=== PATIENT | female | born 1955 | race Caucasian/White ===

== ENCOUNTER 2019-06-03 07:44 | Inpatient (IN) | payer OTHER ==
[~2019-06-03 07:44] MED LIST: ACETAMINOPHEN 500 MG TABLET PO ONE; CEFAZOLIN 2 Gram 2 GM/50 ML BAG IVPB ONE; CELECOXIB 100 MG CAPSULE PO ONE; CLINDAMYCIN PHOS/D5W 900MG 900 MG/50 ML BAG IVPB ONE; FAMOTIDINE 20MG TABLET PO ONE; METOCLOPRAMIDE 10 MG TABLET PO ONE; SCOPOLAMINE 1 PATCH TDSY TD ONE; VANCOMYCIN 1GM/200ML PREMIX 1 GM/200 ML PIGGYBACK IVPB ONE
[2019-06-03] MEDS ORDERED: PROMETHAZINE HCL 12.5 MG in 0.9 % SODIUM CHLORIDE 100ML 50 ML IVPB PRN (08:11)
[2019-06-03] MEDS ORDERED: ACETAMINOPHEN 325 MG TAB PO PRN (08:11)
[2019-06-03] MEDS ORDERED: KETOROLAC 30 MG/ML VIAL IVP PRN (08:11)
[2019-06-03] MEDS ORDERED: NALOXONE 0.4 MG/1 ML VIAL IVP PRN (08:11)
[2019-06-03] MEDS ORDERED: MAGNESIUM HYDROXIDE 30 ML UDC PO PRN (08:11)
[2019-06-03] MEDS ORDERED: ACETAMINOPHEN W/ CODEINE 300MG/60MG TABLET PO PRN (08:11)
[2019-06-03] MEDS ORDERED: METOCLOPRAMIDE HCL 10 MG/2 ML VIAL IVP PRN (08:11)
[2019-06-03] MEDS ORDERED: BISACODYL 10 MG SUPP RC PRN (08:11)
[2019-06-03] MEDS ORDERED: ZOLPIDEM TARTRATE 5 MG TABLET PO PRN (08:11)
[2019-06-03] MEDS ORDERED: TRAMADOL HCL 50 MG TABLET PO PRN (08:11)
[2019-06-03] MEDS ORDERED: HYDROCODONE/APAP 5/325MG TABLET PO PRN (08:11)
[2019-06-03] MEDS ORDERED: DIPHENHYDRAMINE HCL 25 MG CAPSULE PO PRN (08:11)
[2019-06-03] MEDS ORDERED: AL HYDROX/MAG HYDROX 30ML UD PO PRN (08:11)
[2019-06-03] MEDS ORDERED: ONDANSETRON HCL IV 4 MG/2 ML VIAL IVP PRN (08:11)
[2019-06-03] MEDS ORDERED: HYDROMORPHONE HCL 2 MG/ML VIAL IM PRN ×2 (08:11)
[2019-06-03] MEDS ORDERED: ACETAMINOPHEN W/ CODEINE 300MG/30MG TABLET PO PRN ×2 (08:11)
[2019-06-03] MEDS ORDERED: CELECOXIB 100 MG CAPSULE PO ONE (08:31)
[2019-06-03] MEDS ORDERED: ACETAMINOPHEN 500 MG TABLET PO ONE (08:31)
[2019-06-03 08:54] LABS: ABO GROUP A; ANTIBODY SCREEN NEGATIVE (NEGATIVE); RH TYPE POSITIVE
[2019-06-03] MEDS ORDERED: RINGERS SOLUTION,LACTATED 1,000 ML IV ONE ×3 (08:57→12:23)
[2019-06-03] MEDS ORDERED: BUPIVACAINE 0.5% W/EPI MPF 30 ML VIAL IU ONE (11:20)
[2019-06-03] MEDS ORDERED: VANCOMYCIN HCL 1 GM VIAL IU ONE ×2 (11:21)
[2019-06-03] MEDS ORDERED: VANCOMYCIN HCL 1 GM VIAL IR ONE (11:21)
[2019-06-03] MEDS ORDERED: BUPIVACAINE LIPOSOME 266MG/20ML VIAL SQ ONE (11:21)
[2019-06-03] MEDS ORDERED: TRANEXAMIC ACID 1,000 MG/10 ML ML IU ONE (11:23)
[2019-06-03] MEDS ORDERED: TRANEXAMIC ACID 1,000 MG/10 ML ML IVPB ONE (11:24)
[2019-06-03] MEDS ORDERED: DEXTROSE 5 % AND 0.9 % NACL 1,000 ML IV PRN (12:30)
[2019-06-03] MEDS: FENTANYL CITRATE/PF (PACU) 50 MCG/ML VIAL IVP PRN ×2 (13:05→13:15)
[2019-06-03] MEDS ORDERED: HYDROMORPHONE HCL 2 MG/ML VIAL IVP PRN (13:16)
--- NOTE | 2019-06-03 13:28 | RADIOLOGY REPORT ---
EXAMINATION: Right Shoulder, single view EXAM DATE: 06/03/2019 12:59 PM TECHNIQUE: AP INDICATION: RIGHT SHOULDER ARTHROPLASTY COMPARISON: None ENCOUNTER: Initial FINDINGS: Single frontal image of the shoulder shows a humeral head prosthesis and cementing of the glenoid fos sa. Normal alignment. No periprosthetic fracture. Osteopenia and mild degenerative change of the acro mioclavicular joint are noted. Surgical skin vidhya are present. IMPRESSION: Right shoulder arthroplasty. Dictated by: Tali Johnson MD on 06/03/2019 1:25 PM. .
[2019-06-03] MEDS ORDERED: LABETALOL HCL 5MG/ML, 20ML VIAL IV ONE (13:54)
--- NOTE | 2019-06-03 15:13 | Operative Note ---
DATE OF SURGERY: 06/03/2019 PREOPERATIVE DIAGNOSIS: END STAGE RIGHT GLENOHUMERAL ARTHROSIS. POSTOPERATIVE DIAGNOSIS: END STAGE RIGHT GLENOHUMERAL ARTHROSIS. OPERATION: 1. RIGHT TOTAL SHOULDER ARTHROPLASTY. 2. BICEPS TENODESIS. SURGEON: Bob Rojas M.D. ANESTHESIA: General endotracheal. ANESTHESIA PROVIDER: ELIZABETH Ramos CRNA COMPLICATIONS: None. ESTIMATED BLOOD LOSS: Minimal OPERATIVE FINDINGS: [id number] glenohumeral arthrosis. COMPONENTS PLACED: 2 gram Vancomycin cement, Equinoxe total shoulder arthroplasty system, a medium four pack glenoid component, a size 9 humeral stem and a replicator plate and a 44 x 17 mm humeral head component. INDICATION: This is a 64-year-old female who has had persistent pain and dysfunction in her shoulder for several years. Failed nonoperative treatment and operative shoulder replacement, [id number] arthrosis and she wished to proceed. PROCEDURE: The patient was brought to the Operating Room and placed in the beach chair position, prepped for surgery. General endotracheal anesthesia was induced. Her right upper extremity and right shoulder were prepped and draped in sterile fashion. The right shoulder was prepped again with ChloraPrep. Intraoperative timeout was performed. Next, I performed a superolateral deltoid minimal incision. The skin and subcutaneous tissues were dissected down to the deltoid, the deltoid was released off the distal clavicle. The anterolateral acromion is completely normal and no more than 4 cm distal. Next, we then brought in self retainers and then identified the rotator cuff. The rotator cuff was intact. We identified the rotator interval and biceps tendon, opened up the bicipital groove and released the rotator interval medially to the top of the glenoid. We cut and released the biceps tendon, tagged it and layered it with subscap repair. Next, we used a curved osteotome and did a hardeep osteotomy of the lesser trochanter and tagged with two #2 Vicryl. We thoroughly inspected the rotator cuff, it was intact, therefore, we proceeded with total shoulder arthroplasty. Next, external rotation of the arm, exposed the humerus, protected the rotator cuff superiorly with a specially made retractor and we performed an osteotomy of the humeral neck in 20 degrees of retroversion at the rotator cuff greater tuberosity junction. Next, we began preparing the humeral canal , worked up to a size 9, a size 11 reamer could not go all the way into the canal, we are planning on using a size 9, we then broached a size 9 and did a trial size 9 to fit nicely. Next, we then mixed cement, placed cement restrictor distally to bone, we irrigated copiously, placed two #5 FiberWire sutures in and out across our hardeep osteotomy site for later subscap tendon repair. We irrigated the canal copiously and then injected cement was removed with a suction catheter and inserted the real humeral stem again 20 degrees retroverted until it was flush with that cut and held there until cement hardened. Next, we placed the protective cap over that and then exposed the glenoid. We released the glenoid circumferentially and the labrum is Grade 3-4 chondromalacia throughout the glenoid. We did a circumferential release of the subcap tendon as well protecting the axial nerve at all times and then placed a retractor anteriorly and had good exposure of glenoid. Next, we marked perpendicular electrocautery dennison about 17 mm above the inferior glenoid edge and drilled the starting photogrammetry airplane pilot hole and then inserted our reamer hold and reamed our central peg hole. Next, we inserted a small and medium reamer to cover the glenoid nicely and ream a few millimeters off to subchondral bone. Next, we inserted the peg drill guide and drilled our three peg holes. Next we did a trial of medium glenoid component and it fit nicely without rocking superior inferiorly or anterior posterior. Next we then exposed the proximal humerus, we set the replication plate and our humeral diameter at 44 mm and tightened the replication plate and then trialed a 44 mm heads. The best combination range of motion stability is a 44 and the humeral head size is 44 x 17 mm, 50% translation anteroposteriorly without overstuffing the rotator cuff and had full range of motion and good rotator cuff tension with inferior distraction with the size we used. Eventually we removed all trial components in the glenoid, irrigated the glenoid copiously, drilled several small drill holes in the glenoid space and then packed the mixed cement into the peg holes. Next then we inserted the real glenoid component and held it there under pressure until the cement hardened. Next we exposed the humerus, replaced the replicator plate again in the posterior inferior direction and tightened the set screw and then impacted down the real humeral head component, reduced shoulder finding, and range of motion is still the same. Irrigated it copiously, repaired the subscap tendon using previously placed #5 FiberWire sutures that are circularized around the implant humeral stem using Librado Allent stitch at the bone tendon junction medially. We brought the lateral limb of the sutures across the hardeep osteotomy into the biceps to tenodesis that and then we tied that down over the top securely repairing things in anatomic position. Next we then tucked the biceps tendon up and underneath the rotator interval and did a shoestring type stitch from distal to mediolateral tucking the biceps tendon underneath the rotator interval and closing that at the same time. Irrigated again, closed the deltoid fascia securely using [id number] #2 Vicryl with some cerclage transosseous are on the clavicle and acromion. Irrigated again, closed the skin using 2-0 Vicryl and vidhya. We injected deep and superficial with 0.5% Marcaine with Epi, tranexamic acid, ad Exparel mixtures as well. Sterile dressing applied, and a sling. The patient tolerated the procedure well. No intraoperative complications. All sponge, needle and blade counts are correct. Sent to the Recovery Room stable. Neurovascularly intact. Patient discharged to the floor and will be discharged home tomorrow. Follow-up in two weeks. JOB NUMBER: [id number] [facility]
[2019-06-03] MEDS ORDERED: LOPERAMIDE 2 MG CAPSULE PO PRN (15:37)
[2019-06-03] MEDS: HYDROCODONE/APAP 5/325MG TABLET PO PRN ×2 (16:29→21:33)
[2019-06-03] MEDS: TRAMADOL HCL 50 MG TABLET PO PRN (18:30)
[2019-06-03] MEDS: VANCOMYCIN 1GM/200ML PREMIX 1 GM/200 ML PIGGYBACK IVPB SCH (21:01)
[2019-06-03] MEDS: DOCUSATE SODIUM 100 MG CAPSULE PO SCH (21:06)
[2019-06-03] MEDS: FERROUS SULFATE 325 MG TAB PO SCH (21:06)
[2019-06-03] MEDS ORDERED: HYDROXYCHLOROQUINE SULFATE 200 MG TABLET PO SCH (22:00)
[2019-06-03] MEDS ORDERED: ESCITALOPRAM 10 MG TABLET PO SCH (22:00)
[2019-06-03] MEDS ORDERED: SIMVASTATIN 20 MG TABLET PO SCH (22:00)
[2019-06-03] MEDS: HYDROCODONE/APAP 7.5/325MG TABLET PO PRN (22:34)
[2019-06-04 06:43] LABS: HEMATOCRIT 30.9 % (35.0-47.0); HEMOGLOBIN 9.8 gm/dl (11.6-16.0)
[2019-06-04] MEDS ORDERED: LEVOTHYROXINE SODIUM 100 MCG TABLET PO SCH (07:00)
[2019-06-04] MEDS ORDERED: PANTOPRAZOLE SODIUM 40 MG TABLET PO SCH (07:00)
[2019-06-04] MEDS: HYDROCODONE/APAP 7.5/325MG TABLET PO PRN ×2 (08:10→10:58)
[2019-06-04] MEDS: FERROUS SULFATE 325 MG TAB PO SCH (09:04)
[2019-06-04] MEDS: VANCOMYCIN 1GM/200ML PREMIX 1 GM/200 ML PIGGYBACK IVPB SCH (09:04)
[2019-06-04] MEDS: DOCUSATE SODIUM 100 MG CAPSULE PO SCH (09:04)
--- NOTE | 2019-06-04 09:27 | Rehab Evaluation ---
Patient Information - Patient Information Diagnosis: R Shoulder Arthrosis Ordered Treatment: PT Evaluate and Treat Status: Initial Evaluation Surgery: Yes (R TSA) Date of Surgery: 06/04/19 Past Medical/Surgical Hx: PAST MEDICAL/SURGICAL HISTORY Past Surgical History LEFT RTC REPAIR 2014 TONSILS HYST 1/2 STOMACH REMOVED AGE 20 C SCOPES PMH - Respiratory Hx Respiratory Disorders Yes Hx Bronchitis Yes: IN THE PAST Hx Sleep Apnea Yes Hx of CPAP Yes: INSTRUCTED TO BRING IT WITH HER PMH - Cardiovascular Hx Cardiovascular Disorders Yes Hx Heart Murmur Yes Exercise Tolerance Good PMH - Neuro Hx Neurological Disorders Yes Hx Dizziness Yes: AT TIMES R/T SINUSES PMH - GI Hx Gastrointestinal Disorders Yes Hx Gastrointestinal Bleed Yes: AT AGE 20 D/T ASA USAGE Hx Gastroesophageal Reflux Yes: ON MEDS GOOD CONTROL Hx Ulcer Yes PMH - Hx Genitourinary Disorders No Patient No Comment: S/P HYST PMH - Endocrine Hx Endocrine Disorders Yes Hx Thyroid Disease Yes: HYPO ON MEDS PMH - Musculoskeletal Hx Musculoskeletal Disorders Yes Hx Arthritis Yes: JUVINILE RA, OSTEOARTHRITIS Hx Osteoporosis Yes: OSTEOPENIA Comment: LUPUS PMH - Psych Hx Psychiatric Problems Yes Hx Anxiety Yes Hx Depression Yes PMH - Hematology/Oncology Hx Hematology/Oncology Yes Disorders Hx Anemia Yes Premorbid Status: Detail (Patient did not use an AD prior to her surgery.) Social History: Detail (Patient lives with her in a 1-story home with a basement. The patient said that she doesn't need to use the basement after returning home. There are 4 steps to enter the home in the garage with a railing on the R when ascending stairs. She has a ramp in the front of her house, but said she usually goes in throught the garage. In the bathroom there is a walk-in shower with 2 small built-in shower benches. There are no grab bars but she does have a hand held shower head. The toilet is of standard height and there are no grab bars but she stated there is a wall to hang onto if she needs it. Patient stated that she does not have a walker or a cane. Patient reports that she does a lot of the housework and yardwork.) Precautions: [place], Fall - Time With Patient Total Time Spent With Patient (Min): 25 Treatment Procedures: Detail (Initial evaluation; low complexity. The patient w as left in the room with her call light and bedside table within reach. The nursing staff was in the room with her.) Subjective Information - Subjective Information Per Patient (Patient reported that she had some pain in her R shoulder, and that the pain was felt deep in her shoulder.) Objective Data - Pain Pain Present: Yes (3/10 in R shoulder) Pain Scale Used: Numeric (1 - 10) (3/10) - Mental Status Patient Orientation: Oriented x3 - Visual Perception Appears within normal limits for therapeutic activities - ROM Within normal limits (LE AROM was WNL for functional activities of ambulating and stair training. Refer to OT note for UE ROM.) - Strength/Tone Within normal limits (LE strength was within normal limits for functional a ctivities of stair training and ambulation. Refer to OT note for UE strength.) - Coordination Appears within normal limits for therapeutic activities - Bed Mobility Independent (Patient was independent in all bed mobility tasks.) - Transfers Independent (Patient was independent in sit to stand, stand to sit, supine to si t, and sit to supine.) - Balance Balance Sitting: Good Balance Standing: Good (Patient demonstrated good standing balance during dynamic balance tasks without the use of an AD.) - Sensation Intact - Gait Detail (Patient ambulated 80 feet independently without an assistive device with a reciprocal step through gait pattern. Patient's R arm was in a sling, and she demonstrated good stability. She was able to ascend and descend 3 stairs independently with use of a handrail with the L UE going sideways up and down the stairs.) Therapy Assessment - Therapy Assessment Detail (Patient presents with R shoulder impairments as expected s/p R TSA procedure. She has met all of her inpatient physical therapy goals at this time. Patient will continue with ongoing therapy for her shoulder impairments.) Problem List - Problem List Physical Therapy Problem List: Detail (1. Decreased R shoulder ROM 2. Decreased R shoulder strength 3. R shoulder pain) Goals - Goals Physical Therapy Goals: The patient has met all of her inpatient therapy goals at this time. Plan - Plan Physical Therapy Plan: The patient is being discharged from inpatient physical therapy. She will continue with further therapy following discharge.
[2019-06-04] MEDS ORDERED: HYDROXYCHLOROQUINE SULFATE 200 MG TABLET PO SCH (10:00)
[2019-06-04] MEDS ORDERED: LORATADINE 10 MG TABLET PO SCH (10:00)
[2019-06-04] MEDS ORDERED: CELECOXIB 100 MG CAPSULE PO SCH (10:00)
--- NOTE | 2019-06-04 10:39 | Rehab Evaluation ---
Patient Information - Patient Information Diagnosis: R Shoulder Arthrosis Ordered Treatment: OT Evaluate and Treat Status: Initial Evaluation Surgery: Yes (R TSA) Date of Surgery: 06/04/19 Past Medical/Surgical Hx: PAST MEDICAL/SURGICAL HISTORY Past Surgical History LEFT RTC REPAIR 2014 TONSILS HYST 1/2 STOMACH REMOVED AGE 20 C SCOPES PMH - Respiratory Hx Respiratory Disorders Yes Hx Bronchitis Yes: IN THE PAST Hx Sleep Apnea Yes Hx of CPAP Yes: INSTRUCTED TO BRING IT WITH HER PMH - Cardiovascular Hx Cardiovascular Disorders Yes Hx Heart Murmur Yes Exercise Tolerance Good PMH - Neuro Hx Neurological Disorders Yes Hx Dizziness Yes: AT TIMES R/T SINUSES PMH - GI Hx Gastrointestinal Disorders Yes Hx Gastrointestinal Bleed Yes: AT AGE 20 D/T ASA USAGE Hx Gastroesophageal Reflux Yes: ON MEDS GOOD CONTROL Hx Ulcer Yes PMH - Hx Genitourinary Disorders No Patient No Comment: S/P HYST PMH - Endocrine Hx Endocrine Disorders Yes Hx Thyroid Disease Yes: HYPO ON MEDS PMH - Musculoskeletal Hx Musculoskeletal Disorders Yes Hx Arthritis Yes: JUVINILE RA, OSTEOARTHRITIS Hx Osteoporosis Yes: OSTEOPENIA Comment: LUPUS PMH - Psych Hx Psychiatric Problems Yes Hx Anxiety Yes Hx Depression Yes PMH - Hematology/Oncology Hx Hematology/Oncology Yes Disorders Hx Anemia Yes Premorbid Status: Detail (Patient did not use an AD prior to her surgery. She was responsible for all home mgmt, meal prep, laundry and yard work. Spouse will be available to assist after discharge.) Social History: Detail (Patient lives with her in a 1-story home with a basement. The patient said that she doesn't need to use the basement after returning home. There are 4 steps to enter the home in the garage with a railing on the R when ascending stairs. She has a ramp in the front of her house, but said she usually goes in throught the garage. There is a ramp at the front entrance. In the bathroom there is a walk-in shower with 2 small built-in shower benches. There are no grab bars but she does have a hand held shower head. The toilet is of standard height and there are no grab bars but she stated there is a wall to hang onto if she needs it. Patient stated that she does not have a walker or a cane.) Precautions: [place], Fall, Other (TSA precautions) - Time With Patient Total Time Spent With Patient (Min): 35 Treatment Procedures: Detail (OT eval low complexity) Subjective Information - Subjective Information Per Patient Objective Data - Pain Pain Present: Yes (09/02) - Mental Status Patient Orientation: Oriented x3 - Visual Perception Appears within normal limits for therapeutic activities - ROM Not within normal limits (Left UE AROM WNL, right elbow, forearm, wrist and hand AROM WNL, right shoulder not tested.) - Strength/Tone Not within normal limits (Left UE strength WNL, right UE not tested due to surgical precautions.) - Coordination Appears within normal limits for therapeutic activities - Bed Mobility Independent - Transfers Independent - Balance Balance Sitting: Good Balance Standing: Good - Sensation Intact - Gait Detail (Pt ambulating in room with SBA) - ADL's/IADL's Detail (Pt educated re: one handed dressing techniques and she was able to demonstrate doffing slipper socks, donning pants, socks, shoes, giles and button down shirt with verbal cues. Provided pt with written handouts for UE dressing.) Therapy Assessment - Therapy Assessment Detail (Provided pt with written HEP for right elbow, forearm, wrist and hand AROM as well as yellow theraputty HEP. Pt was able to demonstrate learning of HEP.) Problem List - Problem List Physical Therapy Problem List: Detail (1. Decreased R shoulder ROM 2. Decreased R shoulder strength 3. R shoulder pain) Occupational Therapy Problem List: Detail (No current IP OT problems identified.) Goals - Goals Physical Therapy Goals: The patient has met all of her inpatient therapy goals at this time. Occupational Therapy Goals: No current IP OT goals identified. Prognosis - Prognosis Good Plan - Plan Physical Therapy Plan: The patient is being discharged from inpatient physical therapy. She will continue with further therapy following discharge. Occupational Therapy Plan: Discharge from IP OT at this time with OP therapy to begin in the next few days. Thank you for this referral.
[2019-06-04] MEDS: TRAMADOL HCL 50 MG TABLET PO PRN (10:59)
[2019-06-04] MEDS ORDERED: SUFENTANIL CITRATE 50 MCG/ML AMPUL IV ONE (13:59)
[2019-06-04] MEDS ORDERED: GLYCOPYRROLATE 0.2 MG/ML ML IV ONE (13:59)
[2019-06-04] MEDS ORDERED: SUCCINYLCHOLINE 20 MG/ML 10ML IVP ONE (13:59)
[2019-06-04] MEDS ORDERED: DIPHENHYDRAMINE HCL 50 MG/ML VIAL IVP ONE (13:59)
[2019-06-04] MEDS ORDERED: LABETALOL HCL 5MG/ML, 20ML VIAL IV ONE (13:59)
[2019-06-04] MEDS ORDERED: HYDROMORPHONE HCL 2 MG/ML VIAL IV ONE (13:59)
[2019-06-04] MEDS ORDERED: ROCURONIUM BROMIDE 50MG/5ML VIAL IV ONE (13:59)
[2019-06-04] MEDS ORDERED: PROPOFOL 10 MG/ML VIAL IV ONE (13:59)
[2019-06-04] MEDS ORDERED: EPHEDRINE SULFATE 50 MG/ML ML IV ONE (13:59)
[2019-06-04] MEDS ORDERED: LIDOCAINE 2% MDV (20MG/ML) 20ML VIAL IV ONE (13:59)
[2019-06-04] MEDS ORDERED: MIDAZOLAM HCL 2MG/2ML VIAL IV ONE (13:59)
[2019-06-04] MEDS ORDERED: DESFLURANE 240 ML BTL INH ONE (13:59)
[2019-06-04] MEDS ORDERED: SUGAMMADEX SODIUM 200 MG/2 ML VIAL IV ONE (13:59)
[2019-06-04] MEDS ORDERED: DEXAMETHASONE 4 MG/ML 1ML VIAL IVP ONE (13:59)
== END 2019-06-04 13:50 | disposition home or self-care (01) | DRG 983 ==
LOC: MEDSURG 07:44
PROVIDERS: ADMIT Orthopaedic Surgery; ATTEND Orthopaedic Surgery
PROC: 0LS30ZZ Reposition Right Upper Arm Tendon, Open Approach (ICD-10-PCS; 2019-06-03)
PROC: 0RRJ00Z Replacement of Right Shoulder Joint with Reverse Ball and Socket Synthetic Substitute, Open Approach (ICD-10-PCS; principal; 2019-06-03 10:00)
DX: E78.00 Pure hypercholesterolemia, unspecified (principal); M06.9 Rheumatoid arthritis, unspecified; E03.9 Hypothyroidism, unspecified; K21.9 Gastro-esophageal reflux disease without esophagitis; G47.33 Obstructive sleep apnea (adult) (pediatric)
CPT/HCPCS: 85014; 85018; 86850; 86900; 86901; C1776; J0330; J1200; J1885; J3370; J3490; J7042; J7120